=== PATIENT | male | born 1985 | race Two or more races ===

== ENCOUNTER → 2019-01-11 | Emergency (ER) | payer MEDICAID | END | disposition left against medical advice (07) | LOC: ER 23:09 | DX: S91.319A Laceration without foreign body, unspecified foot, initial encounter (principal); Z53.21 Procedure and treatment not carried out due to patient leaving prior to being seen by health care provider; X58.XXXA Exposure to other specified factors, initial encounter; Y93.89 Activity, other specified; Y99.8 Other external cause status; Y92.89 Other specified places as the place of occurrence of the external cause ==